=== PATIENT | female | born 2000 | race Caucasian/White ===

== ENCOUNTER 2024-03-26 09:59 | Emergency (ER) | payer BC, SELFPAY ==
[2024-03-26] VITALS (11 sets, daily range): BP systolic 115–138; BP diastolic 59–73; PULSE 72–106; RESP 13–20; TEMP 37–37.1; O2SAT 96–100; BMI 27.3
--- NOTE | 2024-03-26 10:10 | ED_ITS ---
Discharge Plan Disposition Patient Disposition: Home, Self-Care Condition: Good Prescriptions Prescriptions: New dicyclomine 10 mg capsule 10 mg PO BID 10 Days Qty: 20 0RF ondansetron 4 mg tablet,disintegrating 4 mg PO Q8H PRN (Reason: nausea and vomiting) 5 Days Qty: 10 0RF omeprazole 20 mg capsule,delayed release(DR/EC) 20 mg PO DAILY 28 Days Qty: 28 0RF Referrals Follow up/Referrals: Martha Rizvi PA [Primary Care Provider] - See instructions Activity Restrictions/Add. Instructions Additional Instructions/Restrictions: As we discussed, thankfully your workup today does not show any evidence of appendicitis, gallstones, pneumonia, or dehydration leading to kidney injury, your COVID and flu tests are negative. With this workup, it is likely that you have a viral gastroenteritis. The most important thing is to stay hydrated, I have prescribed medications to help with your stomach as well as for nausea. Please make sure you drink plenty liquids, additionally take Tylenol for pain, please return with any new or worsening symptoms. Clinical Impressions Clinical Impression: Gastroenteritis Discharge ED Provider: Rashid Beaver General Adult HPI General Chief complaint: PAIN Stated complaint: vomiting, unable to walk, body aches, passing out Time Seen by Provider: 03/26/24 10:10 History of Present Illness HPI narrative: The patient presents with multiple complaints, including pains in her hips, thighs, knees, described as moderate in severity and worsening with walking. Accompanying symptoms include nausea, vomiting (described as bright yellow with a bad taste), and diarrhea. She also reports decreased p.o. intake and a syncopal episode yesterday. She denies any focal location of joint pain or soreness. She additionally reports diffuse abdominal pain. No recent antibiotic use with the exception of resolved UTI several weeks ago. She mentions a recent history of a sore throat followed by worsening symptoms. She denies any blood in her vomit and reports ongoing bowel movements. She confirms that others around her have been sick with similar symptoms. She denies any dysuria or frequency or vaginal discharge at this time. She denies any recreational drug use. Denies any chronic medical conditions. Please note that above description of symptoms, in this electronic medical record under categorization of recalled from ER triage doctor by RN are reflective of an initial nursing assessment, however, is not reflective of my full history and physical exam that was personally taken and clarified. Consequentially, this preceding description of symptoms, which may include the patient's categorized chief complaint in the EMR, do not reflect my personal clinical impression, and the ultimate description of history of present illness and patient stated complaints should be deferred to this section of the note. Unless stated otherwise or congruent with this section of the note, additional signs, symptoms, or incongruence should be interpreted as inaccurate with my clinical impression. Related Data Previous Rx's Medication Instructions Recorded dicyclomine 10 mg capsule 10 mg PO BID 10 days #20 caps 03/26/24 omeprazole 20 mg capsule,delayed 20 mg PO DAILY 28 days #28 caps 03/26/24 release ondansetron 4 mg disintegrating 4 mg PO Q8H PRN nausea and 03/26/24 tablet vomiting 5 days #10 tabs Allergies Allergy/AdvReac Type Severity Reaction Status Date / Time No Known Allergies Allergy Verified 03/26/24 10:51 [facility] Disclaimer: The information contained in this section may have been updated after the patient was seen, as this information can be updated by other users. Social History Smoking Status: Never smoker alcohol intake: former current occupational status: other Travel in the last 8 weeks: None ROS Obtained: Yes other As per HPI Physical Exam General General appearance: alert Comment: Fatigued appearing, however nontoxic Head Head exam: atraumatic and normocephalic Eye Eye exam: Present normal appearance Neck Neck exam: Present normal inspection Chest Chest inspection: Present normal inspection and symmetric chest wall rise Respiratory Respiratory exam: Present normal lung sounds bilaterally; Absent respiratory distress Cardiovascular Cardiovascular exam: Present regular rate and normal rhythm Abdominal Exam Abdominal exam: Present soft and tenderness Abdominal tenderness: Present diffuse and moderate Neurological Exam Neurological exam: Present alert and oriented X3 Psychiatric Psychiatric exam: Present normal affect and normal mood Skin Skin exam: Present warm and dry Other Other exam information: Dry mucous membranes, oropharyngeal erythema, without tonsillar hypertrophy or exudate No palpable joint effusion, range of motion of hips within normal limits, no warmth or fluctuance of knees, hips. Medical Decision Making Medical Records Medical records reviewed: Yes I reviewed the patient's medical records. Jesus Inquiry Pt receiving controlled substance: No Vital Signs: 03/26/24 10:00 03/26/24 10:15 03/26/24 10:30 Temperature 98.8 F Temperature Source Oral Pulse Rate 90 106 H Pulse Rate [Left Radial] 85 Respiratory Rate 13 Blood Pressure Blood Pressure [Right Arm] 138/73 Blood Pressure Mean [Right Arm] 94 Blood Pressure Source Blood Pressure Position 02 Sat by Pulse Oximetry 99 99 96 Oxygen Delivery Method Room Air 03/26/24 11:00 03/26/24 11:15 03/26/24 11:27 Temperature Temperature Source Pulse Rate 100 H 79 73 Pulse Rate [Left Radial] Respiratory Rate Blood Pressure 119/69 Blood Pressure [Right Arm] Blood Pressure Mean [Right Arm] Blood Pressure Source Blood Pressure Position 02 Sat by Pulse Oximetry 96 98 100 Oxygen Delivery Method Room Air 03/26/24 11:30 03/26/24 12:30 03/26/24 13:00 Temperature Temperature Source Pulse Rate 89 80 79 Pulse Rate [Left Radial] Respiratory Rate 16 18 Blood Pressure 123/66 116/64 115/59 L Blood Pressure [Right Arm] Blood Pressure Mean [Right Arm] Blood Pressure Source Blood Pressure Position 02 Sat by Pulse Oximetry 99 97 97 Oxygen Delivery Method 03/26/24 13:30 03/26/24 13:43 Temperature 98.6 F Temperature Source Oral Pulse Rate 72 73 Pulse Rate [Left Radial] Respiratory Rate 20 18 Blood Pressure 118/65 118/65 Blood Pressure [Right Arm] Blood Pressure Mean [Right Arm] Blood Pressure Source Automatic Cuff Blood Pressure Position Sitting 02 Sat by Pulse Oximetry 97 Oxygen Delivery Method Room Air Room Air Lab Data Lab Results 03/26/24 10:07: Urine Color Yellow, Urine Appearance Clear, Urine pH 6.0, Ur Specific [place] 1.020, Urine Protein Negative, Urine Glucose (UA) Negative, Urine Ketones Trace, Urine Blood Negative, Urine Nitrate Negative, Urine Bilirubin Negative, Urine Urobilinogen 0.2, Ur Leukocyte Esterase Negative, Urine RBC Occasional, Urine WBC 3-5, Ur Squamous Epith Cells 3-5, Urine Bacteria 1+, Urine Mucus Trace, Urine Opiates Screen Negative, Urine Methadone Screen Negative, Ur Barbituates Screen Negative, Ur Phencyclidine Scrn Negative, Ur Amphetamines Screen Negative, U Benzodiazepines Scrn Negative, Urine Cocaine Screen Negative, U Marijuana (THC) Screen Negative 03/26/24 10:11: WBC 22.1 H*, RBC 5.10, Hgb 16.3 H, Hct 47.2 H, MCV 92.6, MCH 32.0 H, MCHC 34.5, RDW 13.7, Plt Count 344, MPV 7.4, Neut % (Auto) 94.3 H, Lymph % (Auto) 2.6 L, [place] % (Auto) 2.1, Eos % (Auto) 0.8, Baso % (Auto) 0.2, Neut # (Auto) 20.9 H, Lymph # (Auto) 0.6 L, [place] # (Auto) 0.5, Eos # (Auto) 0.2, Baso # (Auto) 0.1, Total Counted 100, Neutrophils % (Manual) 84 H, Band Neutrophils % 9.0 H, Lymphocytes % (Manual) 4 L, Monocytes % (Manual) 2, Eosinophils % (Manual) 1, Platelet Estimate Normal, RBC Morphology Normal, Sodium 139, Potassium 3.9, Chloride 105, Carbon Dioxide 24, Anion Gap 13.9, BUN 9, Creatinine 0.70, Estimated Creat Clear 140, Estimated GFR 106, Est GFR ( Amer) 128, Glucose 107 H, Calcium 9.8, Total Bilirubin 2.9 H, AST 31, ALT 33, Alkaline Phosphatase 77, Total Creatine Kinase 52, Total Protein 7.6, Albumin 4.5, Globulin 3.1, Albumin/Globulin Ratio 1.5, Serum HCG, Qual Negative 03/26/24 11:19: SARS-CoV-2 (PCR) Not detected, Influenza A Untype (PCR) Not detected, Influenza Type B (PCR) Not detected 03/26/24 10:11 03/26/24 10:11 Orders (Tests/Meds): ED MEDICATIONS Discontinued Medications Generic Name Dose Route Start Last Admin Trade Name Freq PRN Reason Stop Dose Admin Belladonna Alkaloids 60 ml 03/26/24 10:46 03/26/24 11:02 Belladonna Alkaloids 60 Ml Ml PO 03/26/24 10:47 60 ml ONCE ONE Administration Lactated Ringer's 1,000 mls @ 999 mls/hr 03/26/24 10:46 03/26/24 11:05 Lactated Ringer's 1000 Ml Bag IV 03/26/24 11:46 999 mls/hr .Q1H1M ONE Administration Iopamidol 75 ml 03/26/24 12:04 03/26/24 12:06 Iopamidol-370 (76%);100ml Bottle IV 03/26/24 12:05 75 ml ONCE ONE Administration Ketorolac Tromethamine 15 mg 03/26/24 10:47 03/26/24 11:56 Ketorolac 30mg/Ml Vial IV 03/26/24 10:48 15 mg ONCE ONE Administration Ondansetron HCl 4 mg 03/26/24 10:46 03/26/24 11:04 Ondansetron 4mg/2ml Vial IV 03/26/24 10:47 4 mg ONCE ONE Administration Sodium Chloride 10 ml 03/26/24 12:04 03/26/24 12:06 Sodium Chloride 0.9% 10ml Syr (Rad Only) IV 03/26/24 12:05 10 ml ONCE ONE Administration ORDERS Category Date Time Status CT abdomen pelvis w con Stat Cat Scan 03/26/24 11:00 Completed XR chest portable Stat Exams 03/26/24 11:01 Completed CBC w/Auto Diff [Complete Blood Count Auto Diff] Stat Lab 03/26/24 10:11 Completed CK [Creatine Kinase] Stat Lab 03/26/24 10:11 Completed CMP [Comprehensive Metabolic Panel] Stat Lab 03/26/24 10:11 Completed Drug Screen,Urine Stat Lab 03/26/24 10:07 Completed HCG Qualitative, Serum Stat Lab 03/26/24 10:11 Completed Rapid PCR Covid and Flu A/B Stat Lab 03/26/24 11:19 Completed Urinalysis and Microscopic Stat Lab 03/26/24 10:07 Completed Medical Decision Narrative: Patient with history and exam per above presenting for evaluation of abdominal pain, nausea, vomiting, sore throat Diagnoses considered include myositis, gastroenteritis, synovitis, there is no palpable effusion nor localized tenderness to palpation in any joint to suggest monoarticular arthritis, although considered. Upon further clarification and on physical exam, patient mostly complains of myalgias and arthralgias which have presented after preceding upper respiratory infection, also in the setting of hypovolemia and GI illness. She is clinically nontoxic, afebrile, and has no meningismus. She additionally has other contacts with similar acute GI illness. ED workup and treatment included: ED MEDICATIONS Discontinued Medications Generic Name Dose Route Start Last Admin Trade Name Freq PRN Reason Stop Dose Admin Belladonna Alkaloids 60 ml 03/26/24 10:46 03/26/24 11:02 Belladonna Alkaloids 60 Ml Ml PO 03/26/24 10:47 60 ml ONCE ONE Administration Lactated Ringer's 1,000 mls @ 999 mls/hr 03/26/24 10:46 03/26/24 11:05 Lactated Ringer's 1000 Ml Bag IV 03/26/24 11:46 999 mls/hr .Q1H1M ONE Administration Iopamidol 75 ml 03/26/24 12:04 03/26/24 12:06 Iopamidol-370 (76%);100ml Bottle IV 03/26/24 12:05 75 ml ONCE ONE Administration Ketorolac Tromethamine 15 mg 03/26/24 10:47 03/26/24 11:56 Ketorolac 30mg/Ml Vial IV 03/26/24 10:48 15 mg ONCE ONE Administration Ondansetron HCl 4 mg 03/26/24 10:46 03/26/24 11:04 Ondansetron 4mg/2ml Vial IV 03/26/24 10:47 4 mg ONCE ONE Administration Sodium Chloride 10 ml 03/26/24 12:04 03/26/24 12:06 Sodium Chloride 0.9% 10ml Syr (Rad Only) IV 03/26/24 12:05 10 ml ONCE ONE Administration ORDERS Category Date Time Status CT abdomen pelvis w con Stat Cat Scan 03/26/24 11:00 Completed XR chest portable Stat Exams 03/26/24 11:01 Completed CBC w/Auto Diff [Complete Blood Count Auto Diff] Stat Lab 03/26/24 10:11 Completed CK [Creatine Kinase] Stat Lab 03/26/24 10:11 Completed CMP [Comprehensive Metabolic Panel] Stat Lab 03/26/24 10:11 Completed Drug Screen,Urine Stat Lab 03/26/24 10:07 Completed HCG Qualitative, Serum Stat Lab 03/26/24 10:11 Completed Rapid PCR Covid and Flu A/B Stat Lab 03/26/24 11:19 Completed Urinalysis and Microscopic Stat Lab 03/26/24 10:07 Completed Labs were independently interpreted by me, significant for leukocytosis to 22.1, hemoconcentration, creatinine within normal limits, urine test negative, COVID and flu negative Imaging was independently visualized and interpreted by me, significant for findings consistent with gastroenteritis. Please refer to radiology report for full details. Patient had improvement of symptoms upon repeat evaluation, denying any joint pain at this time, able to ambulate without difficulty. Able to tolerate p.o. My clinical impression at this time is most consistent with gastroenteritis. I discussed my clinical impression with patient and answered all questions. At this time, the evidence for any other entities in the differential is insufficient to warrant any further testing or ED observation. This was explained to the patient. The patient was advised that persistent or worsening symptoms require further evaluation. I confirmed the patient's understanding of this discussion. Critical Care Critical Care Time Critical Care Time: No
--- NOTE | 2024-03-26 10:11 | ECG_ITS ---
APPROVED REPORT Exam: Resting ECG HR:100 bpm ECG Measurements Heart Rate 100 AXES NV 160 P 67 QRSd 77 QRS 64 QT 319 T 60 QTc 376 Conclusion SINUS TACHYCARDIA WITH OCCASIONAL VENTRICULAR PREMATURE COMPLEXES POSSIBLE RIGHT ATRIAL ENLARGEMENT [0.25mV P-WAVE] NONSPECIFIC ST & T-WAVE ABNORMALITY ABNORMAL RHYTHM ECG Electronically signed by : VIDAL JONES, 03/27/2024 05:00:52
[2024-03-26 10:51] LABS: Microscopic, Urine URINE MICROSCOPIC (MICROSCOPIC)
[2024-03-26 10:54] LABS: Basophils # 0.1 K/mm3 (0-0.2); Basophils % 0.2 % (0.1-2.0); Eosinophils # 0.2 K/mm3 (0.0-0.4); Eosinophils % 0.8 % (0.1-12.0); Hematocrit 47.2 % (37.0-47.0); Hemoglobin 16.3 g/dL (12.2-16.2); Lymphocytes # 0.6 K/mm3 (0.7-4.5); Lymphocytes % 2.6 % (10-50); Mean Corpuscular HGB Conc 34.5 g/dL (31.8-35.4); Mean Corpuscular Volume 92.6 fl (81-99); Mean Platelet Volume 7.4 fl (7.4-10.4); Monocytes # 0.5 K/mm3 (0.1-1.0); Monocytes % 2.1 % (1.7-9.3); Neutrophils # 20.9 K/mm3 (1.8-7.8); Neutrophils % 94.3 % (37.0-80.0); Platelet Count 344 K/mm3 (142-424); Red Cell Distribution Width 13.7 % (11.5-17.5); White Blood Count 22.1 K/mm3 (4.8-10.8)
[2024-03-26 10:56] LABS: Appearance,Urine CLEAR (Clear); Bilirubin,Urine Negative (Negative); Blood, Urine Negative (Negative); Color,Urine YELLOW (Yellow); Glucose,Urine (UA) Negative (Negative); Ketones,Urine TRACE (Negative); Leukocyte Esterase,Urine Negative (Negative); Nitrate,Urine Negative (Negative); Protein,Urine Negative (Negative); Urobilinogen,Urine 0.2 EU/dl (0.2)
[2024-03-26 10:56] LABS: Chloride 105 mmol/L (98-107)
[2024-03-26 10:57] LABS: MANUAL DIFFERENTIAL MANUAL DIFFERENTIAL (MANUAL DIFF); Potassium 3.9 mmoL/L (3.5-5.1); Sodium 139 mmol/L (136-145)
[2024-03-26 10:59] LABS: Alanine Aminotransferase 33 U/L (12-78); Alkaline Phosphatase 77 U/L (38-126); Aspartate Amino Transferase 31 U/L (14-36); Bilirubin,Total 2.9 mg/dl (0.2-1.3); Blood Urea Nitrogen 9 mg/dl (7-17); Creatinine Clearance Estimated 140 mL/min (50-200); Estimated Glomerular Filt Rate 106 ml/min (>60); GFR (African American) 128 ML/MIN (>60)
[2024-03-26 11:00] LABS: Albumin Level 4.5 g/dl (3.5-5.0); Albumin/Globulin Ratio 1.5 (1.1-1.8); Anion Gap 13.9 mEq/L (5-15); Calcium 9.8 mg/dl (8.4-10.2); Carbon Dioxide 24 mmol/L (22.0-30.0); Globulin 3.1 g/dL (1.3-3.2); Glucose 107 mg/dl (74-100); Total Protein,Serum 7.6 g/dl (6.3-8.2)
--- NOTE | 2024-03-26 11:00 | CT_ITS ---
PROCEDURE INFORMATION: Exam: CT Abdomen And Pelvis With Contrast Exam date and time: 03/26/2024 12:02 PM Age: 23 years old Clinical indication: Fever; Abdominal pain; Generalized; Additional info: Abdominal pain, fever, leukocytosis TECHNIQUE: Imaging protocol: Computed tomography of the abdomen and pelvis with contrast. Radiation optimization: All CT scans at this facility use at least one of these dose optimization techniques: automated exposure control; mA and/or kV adjustment per patient size (includes targeted exams where dose is matched to clinical indication); or iterative reconstruction. Contrast material: ISOVUE; Contrast volume: 75 ml; Contrast route: IV; COMPARISON: No relevant prior studies available. FINDINGS: Lungs: Lung bases are clear. Liver: Normal. No mass. Gallbladder and bile ducts: Incidental small gallbladder fold within the fundus otherwise unremarkable.. No calcified stones. No ductal dilation. Pancreas: Normal. No ductal dilation. Spleen: Normal. No splenomegaly. Adrenal glands: Normal. No mass. Kidneys and ureters: Kidneys are unremarkable. No calculi or hydronephrosis detected. Stomach and bowel: Mild increased intraluminal fluid throughout the GI tract is otherwise unremarkable. No obstruction or inflammatory changes detected. Appendix: No evidence of acute appendicitis. Intraperitoneal space: Small amount of pelvic free fluid presumed physiological in nature. Vasculature: Unremarkable. No abdominal aortic aneurysm. Lymph nodes: Unremarkable. No enlarged lymph nodes. Urinary bladder: Unremarkable as visualized. Reproductive: Small irregular shaped hypodensity within the uterus presumed secondary to intramural fibroid or adenomyoma. Uterus is otherwise unremarkable. Bones/joints: Unremarkable. No acute fracture. Soft tissues: Unremarkable. IMPRESSION: Mild increased intraluminal fluid throughout the GI tract which can be seen secondary to various causes of diarrhea including gastroenteritis. Please correlate clinically.
--- NOTE | 2024-03-26 11:01 | XR_ITS ---
PROCEDURE INFORMATION: Exam: XR Chest Exam date and time: 03/26/2024 12:10 PM Age: 23 years old Clinical indication: Dyspnea and fever; Additional info: SOA, fever TECHNIQUE: Imaging protocol: Radiologic exam of the chest. Views: 1 view. COMPARISON: CT ABDOMEN PELVIS W CON 03/26/2024 12:02 PM FINDINGS: Lungs: Unremarkable. No consolidation. Pleural spaces: Unremarkable. No pleural effusion. No pneumothorax. Heart/Mediastinum: Unremarkable. No cardiomegaly. Bones/joints: Unremarkable for age. IMPRESSION: Negative chest exam.
[2024-03-26] MEDS: BELLADONNA ALKALOIDS 60 ML ML PO (11:02)
[2024-03-26] MEDS: ONDANSETRON 4MG/2ML VIAL 4 MG IV (11:04)
[2024-03-26] MEDS: LACTATED RINGERS 1000ML 1,000 ML 999 ML IV (11:05)
[2024-03-26 11:08] LABS: Bacteria,Urine 1+ /lpf; Barbiturates Screen,Urine Negative ng/ml (<200); Mucus,Urine Trace /lpf
[2024-03-26 11:09] LABS: Amphetamine/Metha Screen,Urine Negative ng/ml (<1000); Benzodiazepines Screen,Urine Negative ng/ml (<200)
[2024-03-26 11:10] LABS: Cannabinoid Screen,Urine Negative ng/ml (<50); RBC,Urine Occasional #/hpf (0-3)
[2024-03-26 11:11] LABS: Cocaine Screen,Urine Negative ng/ml (<300); Methadone Screen,Urine Negative ng/ml (<300)
[2024-03-26 11:12] LABS: Opiate Screen,Urine Negative ng/ml (<300)
[2024-03-26 11:13] LABS: Phencyclidine Screen,Urine Negative ng/ml (<25)
[2024-03-26 11:19] LABS: Creatine Kinase 52 U/L (30-135)
[2024-03-26 11:21] LABS: Coronavirus 19, PCR Not Detected (NotDetected)
[2024-03-26 11:22] LABS: Influenza A, PCR Not Detected (NotDetected); Influenza B, PCR Not Detected (NotDetected)
[2024-03-26 11:28] LABS: Eosinophils % 1 % (0-3); Lymphocytes % 4 % (10-50); Monocytes % 2 % (2-9); Neutrophils % 84 % (42-76); Total Cells Counted 100
[2024-03-26 11:29] LABS: Platelet Estimate Normal; RBC Morphology Normal
[2024-03-26 11:51] LABS: HCG Qualitative, Serum Negative (Negative)
[2024-03-26] MEDS: KETOROLAC 30MG/ML VIAL 15 MG IV (11:56)
[2024-03-26] MEDS: SODIUM CHLORIDE 0.9% 10ML SYR (RAD ONLY) 10 ML IV (12:06)
[2024-03-26] MEDS: IOPAMIDOL-370 (76%);100ML BOTTLE 75 ML IV (12:06)
== END 2024-03-26 13:49 | disposition home or self-care (01) ==
PROVIDERS: Emergency Provider Emergency Medicine; PCP Physician Assistant
DX: K52.9 Noninfective gastroenteritis and colitis, unspecified (principal); R11.2 Nausea with vomiting, unspecified; D72.829 Elevated white blood cell count, unspecified; R00.0 Tachycardia, unspecified; M79.18 Myalgia, other site
CPT/HCPCS: 71045; 74177; 80053; 80307; 81001; 82550; 84703; 85007; 85025; 87636; 93005; 96361; 96374; 96375; 99285; J2405; J7120; Q9967